=== PATIENT | female | born 1940 | race Caucasian/White ===

== ENCOUNTER 2022-11-24 20:35 | Inpatient (IN) | payer MEDICARE, BC ==
[2022-11-24 20:50] LABS: BASOPHILS ABSOLUTE AUTO 0.07 K/uL (0.00-0.10); EOSINOPHILS ABSOLUTE AUTO 0.29 K/uL (0.00-0.40); HEMATOCRIT 39.3 % (34.3-46.0); HEMOGLOBIN 12.9 g/dL (11.2-15.5); IMMATURE GRAN ABSOLUTE AUTO 0.01 K/uL (0.00-0.23); IMMATURE GRAN PERCENT AUTO 0.1 % (0.0-0.7); LYMPHOCYTES ABSOLUTE AUTO 1.01 K/uL (0.8-3.3); LYMPHOCYTES PERCENT AUTO 13.8 % (11.4-47.7); MEAN CORPUSCULAR HEMOGLOBIN 29.7 pg (31.6-35.5); MEAN CORPUSCULAR HGB CONC 32.8 g/dL (31.6-35.5); MEAN CORPUSCULAR VOLUME 90.3 fL (81.4-99.0); MONOCYTES ABSOLUTE AUTO 0.88 K/uL (0.20-0.90); MONOCYTES PERCENT AUTO 12.1 % (3.3-12.6); NEUTROPHILS ABSOLUTE AUTO 5.04 K/uL (1.0-7.6); PLATELET COUNT,PLT 266 K/uL (130-375); RED BLOOD CELL COUNT 4.35 M/uL (3.77-5.24); WHITE BLOOD CELL COUNT,WBC 7.3 K/uL (3.2-11.0)
[2022-11-24 21:10] LABS: A/G RATIO 0.9 (1.2-2.2); ALANINE AMINOTRANSFERASE,ALT 30 U/L (12-78); ALBUMIN 3.1 g/dL (3.4-5.0); ALKALINE PHOSPHATASE 78 U/L (46-116); ASPARTATE AMNIOTRANSFERASE,AST 28 U/L (15-37); BILIRUBIN TOTAL 1.6 mg/dL (0.2-1.0); BLOOD UREA NITROGEN,BUN 38 mg/dL (7-18); CALCIUM 10.6 mg/dL (8.5-10.1); CARBON DIOXIDE,CO2 29 mmol/L (21-32); CHLORIDE,CL 109 mmol/L (100-108); CREATININE 1.5 mg/dL (0.6-1.0); EST CRCL DRUG DOSING (CG) 27.38 mL/min; ESTIMATED GFR 35 mL/min (>60); GLUCOSE RANDOM 130 mg/dL (74-106); POTASSIUM,K 3.5 mmol/L (3.6-5.2); PROTEIN TOTAL,TP 6.6 g/dL (6.4-8.2); SODIUM,NA 147 mmol/L (140-148)
[2022-11-24 21:11] LABS: ANION GAP 12.5 mmol/L (5.0-14.0)
[2022-11-24 23:03] LABS: APPEARANCE,URINE SLIGHTLY CLOUDY (CLEAR); BILIRUBIN,URINE NEGATIVE (NEGATIVE); COLOR,URINE YELLOW (YELLOW); GLUCOSE,URINE NEGATIVE (NEGATIVE); KETONES,URINE TRACE mg/dL (NEGATIVE); LEUKOCYTE ESTERASE,URINE NEGATIVE (NEGATIVE); NITRITE,URINE POSITIVE (NEGATIVE); OCCULT BLOOD,URINE NEGATIVE (NEGATIVE); PH,URINE 5.5 (5.0-8.0); PROTEIN,URINE TRACE mg/dL (NEGATIVE); UROBILINOGEN,URINE 0.2 EU/dL (0.2-1.0)
[2022-11-24 23:12] LABS: AMORPHOUS SEDIMENT,URINE NOT SEEN; BACTERIA,URINE MANY; EPITHELIAL CELLS,URINE FEW; MUCUS,URINE NOT SEEN; RBC,URINE 0-5 (0-5)
[2022-11-25] MEDS ORDERED: Ondansetron 4 MG/2 ML SDV IV PRN (01:40)
[2022-11-25] MEDS ORDERED: Ondansetron 4 MG Tab.DIS PO PRN (01:40)
[2022-11-25] MEDS ORDERED: Sennosides/Docusate Sodium 50-8.6 MG Tab PO PRN (01:40)
[2022-11-25] MEDS ORDERED: Magnesium Hydroxide 400 MG/5 ML Susp 30 ML Cup PO PRN (01:40)
[2022-11-25] MEDS ORDERED: Melatonin 3 MG Tab ONE (01:44)
[2022-11-25] MEDS: Melatonin 3 MG Tab PO PRN (01:50)
[2022-11-25] MEDS: Acetaminophen 325 MG Tab PO PRN (05:36)
[2022-11-25] MEDS: Ciprofloxacin 500 MG Tab PO SCH (08:55)
[2022-11-25] MEDS ORDERED: Potassium Chloride 20 MEQ Tab.ER PO ONE ×2 (11:30→17:00)
[2022-11-25] MEDS: Haloperidol 1 MG Tab PO PRN ×2 (18:03→22:51)
[2022-11-26] MEDS: Haloperidol 1 MG Tab PO PRN (02:15)
[2022-11-26] MEDS: Ciprofloxacin 500 MG Tab PO SCH (08:35)
[2022-11-26] MEDS: Melatonin 3 MG Tab PO PRN (20:23)
[2022-11-26] MEDS: Sennosides/Docusate Sodium 50-8.6 MG Tab PO SCH (20:23)
[2022-11-27] MEDS: Haloperidol 1 MG Tab PO PRN (02:14)
[2022-11-27] MEDS: Ciprofloxacin 500 MG Tab PO SCH (09:29)
[2022-11-27] MEDS: Sennosides/Docusate Sodium 50-8.6 MG Tab PO SCH ×2 (09:29→21:53)
[2022-11-28] MEDS: Sennosides/Docusate Sodium 50-8.6 MG Tab PO SCH ×2 (08:27→20:29)
[2022-11-28] MEDS: Ciprofloxacin 500 MG Tab PO SCH (08:27)
[2022-11-28] MEDS: Melatonin 3 MG Tab PO PRN (20:29)
[2022-11-29] MEDS: Ciprofloxacin 500 MG Tab PO SCH (08:20)
[2022-11-29] MEDS: Sennosides/Docusate Sodium 50-8.6 MG Tab PO SCH ×2 (08:20→21:16)
[2022-11-30] MEDS: Acetaminophen 325 MG Tab PO PRN (00:36)
[2022-11-30] MEDS: Melatonin 3 MG Tab PO PRN (00:37)
== END 2022-11-30 05:26 | disposition expired | DRG 57 ==
LOC: JP.ED 20:35 → JP.ICU 11-25 00:46 → JP.MS 11-25 19:24 → OBSVTOIN 11-26 11:31
PROVIDERS: ADMIT Hospitalist; ATTEND Internal Medicine
PROC: 5A1221J Performance of Cardiac Output, Continuous, Automated (ICD-10-PCS; principal; 2022-11-30)
DX: T76.11XA Adult physical abuse, suspected, initial encounter (principal); G30.9 Alzheimer's disease, unspecified; N30.00 Acute cystitis without hematuria; M54.89 Other dorsalgia; F02.A11 Dementia in other diseases classified elsewhere, mild, with agitation; F02.C18 Dementia in other diseases classified elsewhere, severe, with other behavioral disturbance; Z74.1 Need for assistance with personal care; Z20.822 Contact with and (suspected) exposure to COVID-19; S40.022A Contusion of left upper arm, initial encounter; S40.021A Contusion of right upper arm, initial encounter; B96.20 Unspecified Escherichia coli [E. coli] as the cause of diseases classified elsewhere; M54.6 Pain in thoracic spine; I08.3 Combined rheumatic disorders of mitral, aortic and tricuspid valves; Z79.899 Other long term (current) drug therapy; Z88.0 Allergy status to penicillin; Z88.2 Allergy status to sulfonamides; Y04.2XXA Assault by strike against or bumped into by another person, initial encounter
CPT/HCPCS: 36415 ×2; 73060; 73080; 80053; 81001; 84132; 85025; 86140; 87086; 87088; 87186; 99285 ×2; A9270 ×11; U0002; 93306; 99223; 99233; 99238; G0378